=== PATIENT | male | born 1955 | race Caucasian/White ===

== ENCOUNTER 2019-06-24 06:44 | Day surgery (SDC) | payer BC ==
[~2019-06-24] VITALS: Ht 185.4 cm; Wt 125.2 kg
[2019-06-24] VITALS (8 sets, daily range): BP systolic 127–148; BP diastolic 52–72
[~2019-06-24 06:44] MED LIST: AMIO200T61 PO; ASPI-41 PO; DOCU100C40 PO; FURO-150 PO; HYDR-3972 PO; METO50TA16 PO; POTA10TA36 PO; SAW450CA7 PO; SIMV-45 PO
[2019-06-24] MEDS ORDERED: acetaminophen 325mg tablet PO ONE (07:10)
[2019-06-24] MEDS ORDERED: diphenhydrAMINE 25mg capsule PO ONE (07:10)
[2019-06-24] MEDS ORDERED: dexamethasone sod phosphate 4mg/ml inj. IV ONE (07:10)
--- NOTE | 2019-06-24 13:24 | NUR ---
Patient transfused 2 units PRBC, tolerated well. No reaction noted.
== END 2019-06-24 13:30 | disposition home or self-care (01) ==
LOC: MED 3N 06:44 → SSTAY O 06:44
PROVIDERS: ATTEND Internal Medicine Hematology & Oncology
DX: D64.9 Anemia, unspecified (principal)
CPT/HCPCS: 36415; 36430; 86885; 86900; 86901; 86920; 86945; J1100; P9016; Q0163